=== PATIENT | male | born 1965 | race Caucasian/White ===

== ENCOUNTER 2019-03-03 18:37 | Observation (INO) ==
--- NOTE | 2019-03-03 19:20 | DR.CP ---
HPI Time Seen Time Seen by Provider: 03/03/19 19:06 PCP Primary Care Physician: COLTEN FUNES HPI Comment HPI Comment: PATIENT IS 53YR OLD WHITE MALE WITH HISTORY OF GOUT, SLEEP APNEA, WHO IS IN ED WITH PAIN LEFT SCAPULAR RADIATING TO NECK AND LEFT SHOULDER. WOKE UP WITH PAIN THIS AM IT PERSISTENT CAUSING WEAKNESS, FATIGUE AND SOB. DAILY ACTIVITIES HAS BEING DIFFICULT TO DO. Complaint Chief Complaint Doctor Comments: CHEST PAIN. Chief Complaint:: " I GOT UP THIS MORNING HURTING IN MY CHEST NECK AND ARM I THOUGHT I MAY HAVE SLEEP WRONG BUT ITS NOT GOING AWAY AND I DONT HAVE ANY ENERGY. I LISTENED TO MY HEART AND IT SOUND LIKE A WASHING MACHINE I HURT IN MY LEFT ARM UP IN MY NECK AND ACROSS CHEST AND IN MY SHOULDER BLADES" Self Treatment fo Chief Complaint: ASA X2 1800 Reviewed Nurses Notes Review: Yes Source History Provided: Patient Mode of Arrival Mode of Arrival: Ambulatory Timing Onset of Chief Complaint: 03/03/19 Came on: Suddenly Duration Duration: Constant Duration: Hours PMH PMH Past Medical History: No Past Medical History: Gout Past Surgical History: No Family History History of Family Medical Conditions: Yes Family Medical History: Diabetes Mellitus, Cancer and Hypertension Social History Alcohol Use: None Do you use any recreational Drugs:: No Lives Where: Home infectious screening Have you traveled outside the country in the last 6 months?: No PE Vitals Vitals: Temperature 98.1 F Pulse Rate 55 Respiratory Rate 11 Blood Pressure 148/92 O2 Sat by Pulse Oximetry 98 ROR Labs Reviewed Result Diagrams: 03/03/19 19:06 03/03/19 19:06 Laboratory: WBC 7.3 X10^3/uL (3.6-10.0) 03/03/19 19:06 RBC 4.97 X10^6/uL (4.7-6.0) 03/03/19 19:06 Hgb 15.8 g/dL (13.5-18.0) 03/03/19 19:06 Hct 43.9 % (42.0-54.0) 03/03/19 19:06 MCV 88.4 fL (80.0-100.0) 03/03/19 19:06 MCH 31.7 pg (27.0-34.0) 03/03/19 19:06 MCHC 35.9 g/dL (33.0-35.0) H 03/03/19 19:06 RDW 13.0 % (11.6-16.5) 03/03/19 19:06 Plt Count 154 X10^3/uL (150.0-450.0) 03/03/19 19:06 MPV 7.6 fL (7.4-11.0) 03/03/19 19:06 Neut % (Auto) 71.5 % (42.0-75.0) 03/03/19 19:06 Lymph % (Auto) 18.3 % (21.0-51.0) L 03/03/19 19:06 [place] % (Auto) 7.4 % (0.0-13.0) 03/03/19 19:06 Eos % (Auto) 2.4 % (0.9-2.9) 03/03/19 19:06 Baso % (Auto) 0.4 % (0.2-1.0) 03/03/19 19:06 Neut # (Auto) 5.2 x10^3/uL (2.2-4.8) H 03/03/19 19:06 Lymph # (Auto) 1.3 X10^3/uL (1.3-2.9) 03/03/19 19:06 [place] # (Auto) 0.5 x10^3/uL (0.3-0.8) 03/03/19 19:06 Eos # (Auto) 0.2 x10^3/uL (0.0-0.2) 03/03/19 19:06 Baso # (Auto) 0.0 X10^3/uL (0.0-0.1) 03/03/19 19:06 Absolute Nucleated RBC 0.2 /100WBC 03/03/19 19:06 D-Dimer < 100 ng/mL (0-400) 03/03/19 19:06 Sodium 140 mmol/L (136-145) 03/03/19 19:06 Corrected Sodium TNP 03/03/19 19:06 Potassium 3.6 mmol/L (3.5-5.1) 03/03/19 19:06 Chloride 103 mmol/L (98-107) 03/03/19 19:06 Carbon Dioxide 30.0 mmol/L (21-32) 03/03/19 19:06 BUN 8 mg/dL (7-18) 03/03/19 19:06 Creatinine 1.94 mg/dL (0.70-1.30) H 03/03/19 19:06 Est GFR (MDRD) Af Amer 47 (>60) L 03/03/19 19:06 Est GFR (MDRD) Non-Af 39 (>60) L 03/03/19 19:06 Glucose 85 mg/dL (65-99) 03/03/19 19:06 Calcium 8.7 mg/dL (8.5-10.1) 03/03/19 19:06 Corrected Calcium TNP 03/03/19 19:06 Total Bilirubin 0.70 mg/dL (0.2-1.0) 03/03/19 19:06 AST 21 Units/L (15-37) 03/03/19 19:06 ALT 22 Units/L (12-78) 03/03/19 19:06 Alkaline Phosphatase 98 Units/L (46-116) 03/03/19 19:06 Creatine Kinase 133 Units/L (39-308) 03/03/19 19:06 CK-MB (CK-2) < 1.0 ng/mL (0-4.0) 03/03/19 19:06 CK/CKMB % Calc 0.8 % (<4) 03/03/19 19:06 Troponin I < 0.02 ng/mL (0-1.5) 03/03/19 19:06 B-Natriuretic Peptide 26.3 pg/mL (0-79) 03/03/19 19:00 Total Protein 7.1 g/dL (6.4-8.2) 03/03/19 19:06 Albumin 3.7 g/dL (3.4-5.0) 03/03/19 19:06 Globulin 3.4 g/dL (2.5-4.5) 03/03/19 19:06 Albumin/Globulin Ratio 1.1 Ratio (1.1-2.1) 03/03/19 19:06
[2019-03-03 19:38] LABS: BASOPHILS % (AUTO) 0.4 % (0.2-1.0); EOSINOPHILS # (AUTO) 0.2 x10^3/uL (0.0-0.2); EOSINOPHILS % (AUTO) 2.4 % (0.9-2.9); HEMATOCRIT 43.9 % (42.0-54.0); HEMOGLOBIN 15.8 g/dL (13.5-18.0); LYMPHOCYTES # (AUTO) 1.3 X10^3/uL (1.3-2.9); LYMPHOCYTES % (AUTO) 18.3 % (21.0-51.0); MEAN CORPUSCULAR HEMOGLOBIN 31.7 pg (27.0-34.0); MEAN CORPUSCULAR HGB CONC 35.9 g/dL (33.0-35.0); MEAN CORPUSCULAR VOLUME 88.4 fL (80.0-100.0); MEAN PLATELET VOLUME 7.6 fL (7.4-11.0); MONOCYTES # (AUTO) 0.5 x10^3/uL (0.3-0.8); MONOCYTES % (AUTO) 7.4 % (0.0-13.0); NEUTROPHILS # (AUTO) 5.2 x10^3/uL (2.2-4.8); NEUTROPHILS % (AUTO) 71.5 % (42.0-75.0); PLATELET COUNT 154 X10^3/uL (150.0-450.0); RED BLOOD COUNT 4.97 X10^6/uL (4.7-6.0); WHITE BLOOD COUNT 7.3 X10^3/uL (3.6-10.0)
[2019-03-03 19:50] LABS: ALANINE AMINOTRANSFERASE 22 Units/L (12-78); ALBUMIN 3.7 g/dL (3.4-5.0); ALKALINE PHOSPHATASE 98 Units/L (46-116); ASPARTATE AMINO TRANSFERASE 21 Units/L (15-37); BLOOD UREA NITROGEN 8 mg/dL (7-18); CALCIUM 8.7 mg/dL (8.5-10.1); CHLORIDE 103 mmol/L (98-107); CREATINE KINASE 133 Units/L (39-308); CREATININE 1.94 mg/dL (0.70-1.30); SODIUM 140 mmol/L (136-145); TOTAL PROTEIN 7.1 g/dL (6.4-8.2); eGFR NON BLACK RACES 39 (>60)
[2019-03-03 20:02] LABS: CREATINE KINASE MB < 1.0 ng/mL (0-4.0); TROPONIN I < 0.02 ng/mL (0-1.5)
[2019-03-03 20:03] LABS: CKMB % 0.8 % (<4)
--- NOTE | 2019-03-03 20:03 | RAD ---
History: Pain Exam: Chest x-ray Comparison: None Technique: Portable chest Findings: The heart is top normal. The pulmonary vessels are normal. The lungs are mildly hyperinflated. No consolidation or effusion is seen. There is overlying EKG lead artifact. IMPRESSION: Overlying EKG lead artifact otherwise, unremarkable. Reported By:
[2019-03-03] MEDS ORDERED: MORPHINE SULFATE INJ 4 MG IVP ONE (21:09)
[2019-03-03] MEDS ORDERED: ZOFRAN INJ 4 MG VIAL IVP ONE (21:09)
[2019-03-03] MEDS ORDERED: NS 1000 ML 1,000 ML IV ONE (21:15)
[2019-03-03] MEDS ORDERED: NS 1000 ML 1,000 ML ONE (21:21)
[2019-03-03] MEDS ORDERED: ZOFRAN INJ 4 MG VIAL ONE (21:22)
[2019-03-03] MEDS ORDERED: MORPHINE SULFATE INJ 4 MG ONE (21:22)
[2019-03-03] MEDS ORDERED: DILAUDID INJ IVP PRN (23:45)
[2019-03-03] MEDS ORDERED: ZOFRAN INJ 4 MG VIAL IVP PRN (23:45)
[2019-03-04] MEDS: NS 1000 ML 1,000 ML IV SCH ×3 (00:40→20:49)
[2019-03-04 01:14] VITALS: BMI 21.4
[2019-03-04 01:48] LABS: BILIRUBIN,URINE NEGATIVE (NEGATIVE); BLOOD/HEMOGLOBIN,URINE 1+ (NEGATIVE); GLUCOSE, URINE NEGATIVE (NEGATIVE); KETONES,URINE NEGATIVE (NEGATIVE); LEUKOCYTE ESTERASE ,URINE NEGATIVE (NEGATIVE); NITRITES,URINE NEGATIVE (NEGATIVE); PROTEIN,URINE NEGATIVE (NEGATIVE); UROBILINOGEN,URINE NORMAL (NORMAL)
[2019-03-04 01:58] LABS: APPEARANCE,URINE CLEAR (CLEAR); COLOR,URINE YELLOW (YELLOW); SQUAMOUS EPITHELIAL CELL,UR NEGATIVE /HPF (NEGATIVE)
[2019-03-04 01:59] LABS: BACTERIA,URINE NEGATIVE /HPF (NEGATIVE)
[2019-03-04 02:43] LABS: CKMB % 0.8 % (<4); CREATINE KINASE MB 0.7 ng/mL (0-4.0); TROPONIN I 0.02 ng/mL (0-1.5)
[2019-03-04] MEDS: ATIVAN INJ 2 MG VIAL IVP SCH ×4 (04:54→20:48)
[2019-03-04 05:55] LABS: BASOPHILS % (AUTO) 0.4 % (0.2-1.0); EOSINOPHILS # (AUTO) 0.1 x10^3/uL (0.0-0.2); EOSINOPHILS % (AUTO) 3.1 % (0.9-2.9); HEMATOCRIT 41.2 % (42.0-54.0); HEMOGLOBIN 14.7 g/dL (13.5-18.0); LYMPHOCYTES % (AUTO) 21.6 % (21.0-51.0); MEAN CORPUSCULAR HEMOGLOBIN 31.7 pg (27.0-34.0); MEAN CORPUSCULAR HGB CONC 35.6 g/dL (33.0-35.0); MEAN PLATELET VOLUME 7.5 fL (7.4-11.0); MONOCYTES # (AUTO) 0.4 x10^3/uL (0.3-0.8); MONOCYTES % (AUTO) 9.2 % (0.0-13.0); NEUTROPHILS # (AUTO) 3.1 x10^3/uL (2.2-4.8); NEUTROPHILS % (AUTO) 65.7 % (42.0-75.0); PLATELET COUNT 119 X10^3/uL (150.0-450.0); RED BLOOD COUNT 4.63 X10^6/uL (4.7-6.0); WHITE BLOOD COUNT 4.6 X10^3/uL (3.6-10.0)
[2019-03-04 06:11] LABS: ALANINE AMINOTRANSFERASE 18 Units/L (12-78); ALBUMIN 3.1 g/dL (3.4-5.0); ALKALINE PHOSPHATASE 78 Units/L (46-116); ASPARTATE AMINO TRANSFERASE 16 Units/L (15-37); BLOOD UREA NITROGEN 10 mg/dL (7-18); CALCIUM 8.2 mg/dL (8.5-10.1); CARBON DIOXIDE 30.7 mmol/L (21-32); CHLORIDE 107 mmol/L (98-107); CHOLESTEROL 135 mg/dL (0-200); COR CA(FOR HYPOALB) 8.9 mg/dL (8.5-10.1); CREATININE 1.56 mg/dL (0.70-1.30); HDL CHOLESTEROL 34 mg/dL (40-60); MAGNESIUM 2.1 mg/dL (1.7-2.9); SODIUM 142 mmol/L (136-145); TOTAL PROTEIN 6.2 g/dL (6.4-8.2); TRIGLYCERIDES 70 mg/dL (0-150); eGFR NON BLACK RACES 50 (>60)
[2019-03-04] MEDS: TYLENOL 325 MG TAB PO PRN ×3 (08:30→19:41)
[2019-03-04] MEDS ORDERED: TYLENOL 325 MG TAB PO ONE (08:44)
[2019-03-04 09:12] LABS: CKMB % 1.2 % (<4); CREATINE KINASE 85 Units/L (39-308); CREATINE KINASE MB < 1.0 ng/mL (0-4.0); TROPONIN I < 0.02 ng/mL (0-1.5)
--- NOTE | 2019-03-04 12:37 | CT ---
HISTORY: Dizziness, fatigue, and weakness. Study: CT brain without contrast Comparison: None. Technique: Multiple axial images of the brain were obtained from the skull base to the vertex without administration of IV contrast. Dose reduction techniques including Automated Exposure Control (AEC) and adjustment of mA and kV were utilized. Findings: No acute intraparenchymal hemorrhage or mass can be identified. No extra-axial fluid collections are seen. No alteration in the attenuation of the brain parenchyma can be identified to suggest acute or subacute ischemic change. The ventricular system is symmetric and nondilated. The extracranial structures are grossly unremarkable. IMPRESSION: No acute intracranial pathology. Reported By:
--- NOTE | 2019-03-04 13:14 | CONS ---
Cardiology Consult Consultation for Day of: Date: 03/04/19 Chief Complaint Chief Complaint: chest pain Allergies Allergies Allergy/AdvReac Type Severity Reaction Status Date / Time No Known Drug Allergies Allergy Verified 03/03/19 18:48 History of Present Illness History of Present Illness: Patient presents with cp that has been on and off for several months. Yesterday the patient start having cp that radiated to his neck and shoulders. It got worse and he came to he ED. He says he has gradually been getting more fatigue and short of breath which is worse when exerts himself. He has also been having more chest discomfort which he thought was from indigestion but he doesn't feel like Tums have been helping. He has been experiencing dizziness on and off also. Past Medical History Past Medical History: Gout Past Surgical History Surgical History: Ortho Surgery Family History Family Medical History: Diabetes Mellitus, Cancer, [place] and Hypertension Social History Does patient currently use any type of tobacco product: No Have you used tobacco products in the last 12 months: No Type of Tobacco Use: None Does any household member use tobacco: No Alcohol Use: None Drug Use: None Medications Home Medications: No Known Drug Allergies Allergy (Verified 03/03/19 18:48) CONTINUE taking the following medications colchicine 1 tab PO PRN PRN 03/04/19 [History] Review of Systems Cardiovascular: Chest Pain and Light Headedness Physical Exam Vital Signs: Temperature 98.1 F Pulse Rate [Brachial] 56 Pulse Rate 58 Respiratory Rate 17 Blood Pressure [Left Arm] 142/82 Blood Pressure 133/80 O2 Sat by Pulse Oximetry 99 Medical Decision Making EKG Results: Sinus Rhythm (Hr 66) Labs reviewed: Yes Radiology Reviewed: Yes Plan Plan: 1. CHEST PAIN- CARDIAC ENZYMES NEG. NUC VS LHC PENDING ON EFCHO RESULTS 2. SHORTNESS OF BREATH- FOLLOW UP WITH ECHO 3. MURMUR 4. FATIGUE 5. AKD 6. DIZZINESS- F/U WITH CT OF HEAD AND CAROTID U/S
[2019-03-04] MEDS ORDERED: LIPITOR TAB 20 MG ONE (14:48)
[2019-03-04] MEDS: ASPIRIN EC 81 MG PO SCH (14:50)
[2019-03-04] MEDS: LIPITOR TAB 20 MG PO SCH ×2 (14:50→20:49)
[2019-03-04] MEDS: LOPRESSOR TAB 25 MG PO SCH ×2 (14:50→20:48)
--- NOTE | 2019-03-04 15:10 | VAS ---
HISTORY: Dizziness, fatigue, weakness Study: Carotid ultrasound Comparison: None Technique: Multiple enrique scale and color flow Doppler images of the right and left carotid arterial system were obtained. The vertebral arterial system was evaluated as well. Findings: The peak systolic velocity of the right ICA is 72 cm/sec. The peak systolic velocity of the left ICA is 85 cm/sec. The ICA/CCA ratio on the right is 1.0. The ICA/CCA ratio on the left is 1.2. Bilateral antegrade vertebral flow was noted. IMPRESSION: 1. No hemodynamically significant stenosis is appreciated. Reported By:
--- NOTE | 2019-03-04 15:45 | DR.H&P ---
H&P - History & Physical for Day of: H&P Date: 03/03/19 - Chief Complaint Chief Complaint: CHEST PAIN, SOB, WEAKNESS, FATIGUE, DIZZINESS - History of Present Illness History of Present Illness: IS A 53 YEAR OLD PATIENT OF [facility] WHO PRESENTED TO THE ER WITH COMPLAINTS OF CHEST PAIN THAT RADIATES TO THE LEFT SHOULDER AND NECK. HE REPORTS TAKING TUMS AT HOME BECAUSE HE THOUGHT THE PAIN WAS RELATED TO INDIGESTION, HOWEVER, THE TUMS DID NOT RELIEVE HIS PAIN. HE ALSO REPORTED WEAKNESS, FATIGUE, SHORTNESS OF BREATH, NAUSEA, AND DIZZINESS THE PAST SEVERAL DAYS. PATIENT REPORTS, MY LISTENED TO MY CHEST WITH A STETHESCOPE AND SHE SAID THAT IT SOUNDED LIKE A WASHING MACHINE. I JUST HAD A NORMAL WORKUP WHEN I WAS DISCHARGED FROM THE A FEW MONTHS AGO. HE ALSO REPORTS TAKING ASPIRIN X 2 AT 1800 YESTERDAY WITHOUT IMPROVEMENT IN SYMPTOMS. ON EXAMINATION, HE WAS NOTED WITH A SYSTOLIC EJECTION MURMUR. ON ARRIVAL, VITALS WERE 98.1-74-18-99%-142/84. LABS WERE OBTAINED. CREATININE WAS NOTED TO BE 1.94, GFR 39, OTHERWISE, LABS STABLE. CARDIAC ENZYMES WITHIN NORMAL LIMITS. URINALYSIS WAS UNREMARKABLE. AN EKGS WAS OBTAINED ON ADMISSION AND REVEALED SINUS RHYTHM WITH HR 69. A CHEST XRAY WAS OBTAINED AND WAS UNREMARKABLE. HE WAS GIVEN MORPHINE 4MG IV X 1 AND ZOFRAN 4MG IV X 1 WITH ONLY MILD IMPROVEMENT IN SYMPTOMS. HE WAS ADMITTED FOR FURTHER EVALUATION AND TREATMENT OF CHEST PAIN RULE OUT ACUTE LA. HE WAS STARTED ON NORMAL SALINE AT K[facility], LOPRESSOR 12.5MG PO BID, ATIVAN 1MG IV Q6H PRN ANXIETY, DILAUDID 2MG IV Q6H PRN PAIN, ASPIRIN 81MG PO DAILY, LIPITOR 20MG PO HS, AND ZOFRAN 4MG IV Q6H PRN NAUSEA. TODAY, WE WILL OBTAIN A BRAIN CT, AN ECHO, CAROTID DOPPLER STUDIES, AND WILL OBTAIN BLOOD CULTURES. WE WILL CONSULT , BELL ATTENDANT. OTHERWISE, WE WILL FOLLOW UP WITH AM LABS AND CONTINUE TO [facility]. - Past Medical History Past Medical History: Gout - Past Surgical History Surgical History: Ortho Surgery - Family History Family Medical History: Diabetes Mellitus, Cancer, [place], Hypertension - Social History Does patient currently use any type of tobacco product: No Have you used tobacco products in the last 12 months: No Type of Tobacco Use: None Does any household member use tobacco: No Alcohol Use: None Drug Use: None - Medications Home Medications: No Known Drug Allergies Allergy (Verified 03/03/19 18:48) CONTINUE taking the following medications RX: colchicine 1 tab PO PRN PRN 03/04/19 [History] - Review of Systems Constitutional: Weakness, Malaise Eyes: No Symptoms Reported ENT: No Symptoms Reported Respiratory: Shortness of Breath, SOB with Excertion Cardiovascular: Chest Pain, Light Headedness Gastrointestinal: Nausea Genitourinary: No Symptoms Reported Musculoskeletal: No Symptoms Reported Skin: No Symptoms Reported Neurological: Weakness - Physical Exam Vital Signs: Temperature 98.1 F Pulse Rate [Brachial] 56 Pulse Rate 58 Respiratory Rate 17 Blood Pressure [Left Arm] 142/82 Blood Pressure 133/80 O2 Sat by Pulse Oximetry 99 Oriented: Normal Eyes: Normal Ear: Normal Nose: Normal Throat: Normal Respiratory: Diminished Throughout Cardiovascular: Irregular, Systolic, Murmur : Normal Auscultation: Bowel Sounds: Normal Palpation: Normal Tenderness: Normal Skin: Normal Musculoskeletal: Normal Psychiatric: Normal Mood Description: Calm Affect: Normal Speech Pattern: Clear - Assessment/Plan (1) Chest pain, rule out acute myocardial infarction Status: Acute Plan: SERIAL CARDIAC ENZYMES AND EKG, LABORATORY CHEMIST, SUPPLEMENTAL OXYGEN, OBTAIN ECHO, CAROTID DOPPLER, CARDIOLOGY CONSULT, CONTINUE TO MONITOR (2) Systolic ejection murmur Status: Acute Plan: SERIAL CARDIAC ENZYMES AND EKG, LABORATORY CHEMIST, SUPPLEMENTAL OXYGEN, OBTAIN ECHO, CAROTID DOPPLER, CARDIOLOGY CONSULT, CONTINUE TO MONITOR - Allergies Allergies/Adverse Reactions: Allergies Allergy/AdvReac Type Severity Reaction Status Date / Time No Known Drug Allergies Allergy Verified 03/03/19 18:48
[2019-03-05] MEDS: ATIVAN INJ 2 MG VIAL IVP SCH ×2 (02:25→08:52)
[2019-03-05] MEDS: NS 1000 ML 1,000 ML IV SCH (02:25)
[2019-03-05 05:25] LABS: BASOPHILS % (AUTO) 0.4 % (0.2-1.0); EOSINOPHILS # (AUTO) 0.2 x10^3/uL (0.0-0.2); EOSINOPHILS % (AUTO) 3.2 % (0.9-2.9); HEMATOCRIT 42.3 % (42.0-54.0); LYMPHOCYTES # (AUTO) 0.9 X10^3/uL (1.3-2.9); LYMPHOCYTES % (AUTO) 16.5 % (21.0-51.0); MEAN CORPUSCULAR HEMOGLOBIN 31.7 pg (27.0-34.0); MEAN CORPUSCULAR HGB CONC 35.5 g/dL (33.0-35.0); MEAN CORPUSCULAR VOLUME 89.3 fL (80.0-100.0); MEAN PLATELET VOLUME 7.7 fL (7.4-11.0); MONOCYTES # (AUTO) 0.4 x10^3/uL (0.3-0.8); MONOCYTES % (AUTO) 7.3 % (0.0-13.0); NEUTROPHILS # (AUTO) 4.1 x10^3/uL (2.2-4.8); NEUTROPHILS % (AUTO) 72.6 % (42.0-75.0); PLATELET COUNT 124 X10^3/uL (150.0-450.0); RED BLOOD COUNT 4.74 X10^6/uL (4.7-6.0); RED CELL DISTRIBUTION WIDTH 12.8 % (11.6-16.5); WHITE BLOOD COUNT 5.7 X10^3/uL (3.6-10.0)
[2019-03-05 05:34] LABS: ALANINE AMINOTRANSFERASE 18 Units/L (12-78); ALKALINE PHOSPHATASE 74 Units/L (46-116); ASPARTATE AMINO TRANSFERASE 17 Units/L (15-37); BLOOD UREA NITROGEN 10 mg/dL (7-18); CALCIUM 8.2 mg/dL (8.5-10.1); CARBON DIOXIDE 30.1 mmol/L (21-32); CHLORIDE 107 mmol/L (98-107); CREATININE 1.45 mg/dL (0.70-1.30); SODIUM 141 mmol/L (136-145); TOTAL PROTEIN 6.1 g/dL (6.4-8.2); eGFR NON BLACK RACES 54 (>60)
[2019-03-05] MEDS: ASPIRIN EC 81 MG PO SCH (08:52)
[2019-03-05] MEDS: LOPRESSOR TAB 25 MG PO SCH (08:53)
[2019-03-05] MEDS ORDERED: VIBRAMYCIN PO SCH (13:00)
[2019-03-05 14:10] VITALS: BP 108/71
== END 2019-03-05 14:15 | disposition short-term general hospital (02) ==
LOC: ER 18:40 → ICU 18:40
PROVIDERS: ADMIT Internal Medicine; ATTEND Internal Medicine
DX: R07.89 Other chest pain; R53.83 Other fatigue; R94.4 Abnormal results of kidney function studies; R53.1 Weakness; R06.02 Shortness of breath; R42 Dizziness and giddiness; M10.9 Gout, unspecified; R01.1 Cardiac murmur, unspecified
CPT/HCPCS: 36415; 70450; 71010; 71045; 80053; 80061; 81001; 82550; 82553; 83735; 83880; 84484; 85025; 85378; 85610; 87040; 93005; 93306; 93880; 96365; 96367; 96374; 96375; 99284; A4222; G0378; J2270; J2405; J3490; J7030

== ENCOUNTER 2019-03-15 08:31 | Observation (INO) ==
[2019-03-15 08:43] VITALS: BMI 21.4
[2019-03-15 09:02] LABS: BASOPHILS % (AUTO) 0.5 % (0.2-1.0); EOSINOPHILS # (AUTO) 0.3 x10^3/uL (0.0-0.2); EOSINOPHILS % (AUTO) 4.2 % (0.9-2.9); HEMATOCRIT 41.1 % (42.0-54.0); HEMOGLOBIN 14.6 g/dL (13.5-18.0); LYMPHOCYTES # (AUTO) 0.9 X10^3/uL (1.3-2.9); LYMPHOCYTES % (AUTO) 14.7 % (21.0-51.0); MEAN CORPUSCULAR HEMOGLOBIN 31.2 pg (27.0-34.0); MEAN CORPUSCULAR HGB CONC 35.6 g/dL (33.0-35.0); MEAN CORPUSCULAR VOLUME 87.8 fL (80.0-100.0); MEAN PLATELET VOLUME 6.6 fL (7.4-11.0); MONOCYTES # (AUTO) 0.6 x10^3/uL (0.3-0.8); MONOCYTES % (AUTO) 9.2 % (0.0-13.0); NEUTROPHILS # (AUTO) 4.5 x10^3/uL (2.2-4.8); NEUTROPHILS % (AUTO) 71.4 % (42.0-75.0); PLATELET COUNT 246 X10^3/uL (150.0-450.0); RED BLOOD COUNT 4.68 X10^6/uL (4.7-6.0); RED CELL DISTRIBUTION WIDTH 12.8 % (11.6-16.5); WHITE BLOOD COUNT 6.4 X10^3/uL (3.6-10.0)
--- NOTE | 2019-03-15 09:03 | ED.ABCESS ---
HPI Time Seen Time Seen by Provider: 03/15/19 08:41 PCP Primary Care Physician: maxi HPI comment HPI Comment: Patient presents with complaint of mid sternal chest tightness. He had mitral valve surgery one week ago and has been doing fine. He has had a few episodes of low blood pressure and has felt dizzy. Complaint Doctors Chief Complaint Comments: Chest tightness Chief Complaint:: pt stated he had mitral valve repair 1 week ago to in [facility]. he woke up this morning at 6 and was dizzy and had tightness in his chest. Source History Provided: Patient Mode of Arrival Mode of Arrival: Wheelchair Timing Onset of Chief Complaint: 03/15/19 PMH PMH Past Medical History: Yes Past Medical History: Gout Past Surgical History: Yes Surgical History: Ortho Surgery Past Surgical History Comment: mitral valve repair Family History History of Family Medical Conditions: Yes Family Medical History: Diabetes Mellitus, Cancer, [place] and Hypertension Social History Does patient currently use any type of tobacco product: No Have you used tobacco products in the last 12 months: No Type of Tobacco Use: None Does any household member use tobacco: No Alcohol Use: None Do you use any recreational Drugs:: No Lives With: Family Lives Where: Home infectious screening In the last 2 months have you had wt loss of >10#?: NO Have you had fever, night sweats or hemotysis?: No Have you traveled outside the country in the last 6 months?: No Isolation: Standard ROS Review of Systems Constitutional: No Symptoms Reported Eyes: No Symptoms Reported ENTM: No Symptoms Reported Respiratoy: No Symptoms Reported Cardiovascular: See HPI Gastrointestinal/Abdominal: No Symptoms Reported Neurological: Dizziness Musculoskeletal: No Symptoms Reported Integumentary: No Symptoms Reported Hematologic/Lymphatic: No Symptoms Reported Endocrine: No Symptoms Reported Psychiatric: No Symptoms Reported All Other Systems: Reviewed and Negative PE Vital Signs Vital Signs: Temp Pulse Resp BP BP Pulse Ox 03/15/19 08:36 98.2 F 91 H 16 122/87 100 03/05/19 14:00 108/71 03/04/19 00:02 142/82 General Limitations: No Limitations General Appearance: Alert, In No Apparent Distress and Anxious Head Head Exam: Normal Inspection, Atraumatic and Normocephalic Eyes Eye exam: Normal Appearance, PERRL and EOMI ENT ENT Exam: Normal Exam, Normal Oropharynx and Normal External Ear Exam Neck Neck Exam: Normal Inspection and Full ROM Chest Chest Inspection: Normal Inspection and Symmetric Chest Wall Rise Respiratory Respiratory Exam: Normal Lung Sounds Bilat Respiratory Exam: Bilateral: Clear to Auscultation Cardiovascular Cardiovascular Exam: Regular Rate and Normal Rhythm Abdominal Exam Abdominal Exam: Normal Inspection, Normal Bowel Sounds and Soft Abdominal Tenderness: RUQ, RLQ and LUQ Extremities Extremities Exam: Normal Inspection and Full ROM Back Back Exam: Normal Inspection Neurologic Neurological Exam: Alert, Oriented X3 and CN II-XII Intact Skin Skin Exam: Warm, Dry and Intact ROR Labs Reviewed Laboratory Results Reviewed?: Yes Result Diagrams: 03/15/19 08:45 03/15/19 08:45 Laboratory: WBC 6.4 X10^3/uL (3.6-10.0) 03/15/19 08:45 RBC 4.68 X10^6/uL (4.7-6.0) L 03/15/19 08:45 Hgb 14.6 g/dL (13.5-18.0) 03/15/19 08:45 Hct 41.1 % (42.0-54.0) L 03/15/19 08:45 MCV 87.8 fL (80.0-100.0) 03/15/19 08:45 MCH 31.2 pg (27.0-34.0) 03/15/19 08:45 MCHC 35.6 g/dL (33.0-35.0) H 03/15/19 08:45 RDW 12.8 % (11.6-16.5) 03/15/19 08:45 Plt Count 246 X10^3/uL (150.0-450.0) 03/15/19 08:45 MPV 6.6 fL (7.4-11.0) L 03/15/19 08:45 Neut % (Auto) 71.4 % (42.0-75.0) 03/15/19 08:45 Lymph % (Auto) 14.7 % (21.0-51.0) L 03/15/19 08:45 [place] % (Auto) 9.2 % (0.0-13.0) 03/15/19 08:45 Eos % (Auto) 4.2 % (0.9-2.9) H 03/15/19 08:45 Baso % (Auto) 0.5 % (0.2-1.0) 03/15/19 08:45 Neut # (Auto) 4.5 x10^3/uL (2.2-4.8) 03/15/19 08:45 Lymph # (Auto) 0.9 X10^3/uL (1.3-2.9) L 03/15/19 08:45 [place] # (Auto) 0.6 x10^3/uL (0.3-0.8) 03/15/19 08:45 Eos # (Auto) 0.3 x10^3/uL (0.0-0.2) H 03/15/19 08:45 Baso # (Auto) 0.0 X10^3/uL (0.0-0.1) 03/15/19 08:45 Absolute Nucleated RBC 0.0 /100WBC 03/15/19 08:45 INR Target Range - 03/15/19 08:45 INR 1.04 (0.8-1.3) 03/15/19 08:45 APTT 36.6 SECONDS (22.9-36.5) H 03/15/19 08:45 PTT Comment - 03/15/19 08:45 Other Results Comments: Chest: Lungs free of acute infiltrates. Subsegmental atelectasis right lung base XRAY XRAY Interpreted by: Radiologist
[2019-03-15 09:19] LABS: BLOOD UREA NITROGEN 15 mg/dL (7-18); CARBON DIOXIDE 30.5 mmol/L (21-32); CHLORIDE 103 mmol/L (98-107); COR NA(FOR HYPERGLY) 140 mmol/L (136-145); CREATININE 1.57 mg/dL (0.70-1.30); SODIUM 139 mmol/L (136-145); eGFR NON BLACK RACES 49 (>60)
--- NOTE | 2019-03-15 09:19 | RAD ---
HISTORY: Chest tightness Study: Chest AP portable Comparison: 03/03/2019 Findings: The heart is upper limits normal in size. No congestive heart failure is noted. The lungs are free of acute alveolar infiltrates. There is minimal subsegmental atelectasis in the right lung base. No pleural effusions are identified. The bony thorax is unremarkable. A metallic ring like density overlies the heart. This was not present on the prior examination and may be extrinsic. Clinical correlation is recommended. IMPRESSION: Lungs free of acute infiltrates Subsegmental atelectasis right lung base Reported By:
[2019-03-15 09:20] LABS: CALCIUM 9.1 mg/dL (8.5-10.1)
[2019-03-15 09:35] LABS: ALANINE AMINOTRANSFERASE 89 Units/L (12-78); ALBUMIN 2.9 g/dL (3.4-5.0); ALKALINE PHOSPHATASE 165 Units/L (46-116); ASPARTATE AMINO TRANSFERASE 33 Units/L (15-37); CKMB % 0.7 % (<4); CREATINE KINASE 143 Units/L (39-308); CREATINE KINASE MB < 1.0 ng/mL (0-4.0); MAGNESIUM 2.2 mg/dL (1.7-2.9); TOTAL PROTEIN 6.7 g/dL (6.4-8.2)
[2019-03-15] MEDS ORDERED: NS 100 ML IV 100 ML ONE (09:50)
[2019-03-15] MEDS ORDERED: NS 1000 ML 1,000 ML IV ONE (09:57)
[2019-03-15] MEDS ORDERED: NS 1000 ML 1,000 ML ONE (09:59)
--- NOTE | 2019-03-15 12:09 | CT ---
History: Shortness of breath and elevated D-dimer Study: CTA chest utilizing unknown amount of IV contrast. Sagittal and coronal and axial MIPS of the pulmonary arteries were displayed. Findings: There is a small right and a minimal left pleural effusion. There is subsegmental atelectasis or consolidation posteriorly at the right lung base. There is minimal subsegmental atelectasis at the left lung base. There is a prosthetic mitral valve. There is no pericardial effusion. No pulmonary embolus is demonstrated. The visualized upper abdomen shows small calculi in the upper pole of the right kidney. There is no hydronephrosis. The spleen is prominent. Impression: 1. No evidence for pulmonary embolus 2. Small right and minimal left pleural effusions and subsegmental atelectasis at both lung bases, right more prominent than left Reported By:
[2019-03-15] MEDS ORDERED: COLCRYS TAB 0.6 MG PO PRN (13:17)
--- NOTE | 2019-03-15 14:18 | DR.CP ---
HPI Time Seen Time Seen by Provider: 03/15/19 08:41 PCP Primary Care Physician: maxi HPI Comment HPI Comment: Patient reports tightness in chest this AM upon awakening. He reports mitral valve procedure at [facility] one week ago; today started having chest "tightness" upper chest Complaint Chief Complaint Doctor Comments: Chest tightness Chief Complaint:: pt stated he had mitral valve repair 1 week ago to in [facility]. he woke up this morning at 6 and was dizzy and had tightness in his chest. Source History Provided: Patient Mode of Arrival Mode of Arrival: Wheelchair Timing Onset of Chief Complaint: 03/15/19 PMH PMH Past Medical History: Yes Past Medical History: Gout Past Surgical History: Yes Surgical History: Ortho Surgery Past Surgical History Comment: mitral valve repair Family History History of Family Medical Conditions: Yes Family Medical History: Diabetes Mellitus, Cancer, [place] and Hypertension Social History Does patient currently use any type of tobacco product: No Have you used tobacco products in the last 12 months: No Type of Tobacco Use: None Does any household member use tobacco: No Alcohol Use: None Do you use any recreational Drugs:: No Lives With: Family Lives Where: Home infectious screening In the last 2 months have you had wt loss of >10#?: NO Have you had fever, night sweats or hemotysis?: No Have you traveled outside the country in the last 6 months?: No Isolation: Standard ROS Review of Systems Constitutional: No Symptoms Reported Eyes: No Symptoms Reported ENTM: No Symptoms Reported Respiratoy: No Symptoms Reported Cardiovascular: No Symptoms Reported Genitourinary: No Symptoms Reported Musculoskeletal: No Symptoms Reported Integumentary: No Symptoms Reported Endocrine: No Symptoms Reported All Other Systems: Reviewed and Negative PE Vitals Vitals: Temperature 98.2 F Pulse Rate [Right Radial] 92 Pulse Rate 91 Respiratory Rate 18 Blood Pressure [Left Arm] 110/74 Blood Pressure 122/87 O2 Sat by Pulse Oximetry 100 General Limitations: No Limitations General Appearance: Alert and In No Apparent Distress Head Head Exam: Normal Inspection, Atraumatic and Normocephalic Eyes Eye exam: Normal Appearance, PERRL and EOMI ENT ENT Exam: Normal Exam, Normal Oropharynx and Normal External Ear Exam Chest Chest Inspection: Normal Inspection and Symmetric Chest Wall Rise Respiratory Respiratory Exam: Normal Lung Sounds Bilat and Accessory Muscle Use Respiratory Exam: Bilateral: Clear to Auscultation Cardiovascular Cardiovascular Exam: Regular Rate and Normal Rhythm Abdominal Exam Abdominal Exam: Normal Inspection, Normal Bowel Sounds and Soft Abdominal Tenderness: RUQ and LUQ Extremities Extremities Exam: Normal Inspection and Full ROM Back Back Exam: Normal Inspection and Full ROM Neurologic Neurological Exam: Alert, Oriented X3 and CN II-XII Intact Psychiatric Psychiatric Exam: Normal Affect and Normal Mood Skin Skin Exam: Warm, Dry and Intact ROR Labs Reviewed Result Diagrams: 03/15/19 08:45 03/15/19 08:45 Laboratory: WBC 6.4 X10^3/uL (3.6-10.0) 03/15/19 08:45 RBC 4.68 X10^6/uL (4.7-6.0) L 03/15/19 08:45 Hgb 14.6 g/dL (13.5-18.0) 03/15/19 08:45 Hct 41.1 % (42.0-54.0) L 03/15/19 08:45 MCV 87.8 fL (80.0-100.0) 03/15/19 08:45 MCH 31.2 pg (27.0-34.0) 03/15/19 08:45 MCHC 35.6 g/dL (33.0-35.0) H 03/15/19 08:45 RDW 12.8 % (11.6-16.5) 03/15/19 08:45 Plt Count 246 X10^3/uL (150.0-450.0) 03/15/19 08:45 MPV 6.6 fL (7.4-11.0) L 03/15/19 08:45 Neut % (Auto) 71.4 % (42.0-75.0) 03/15/19 08:45 Lymph % (Auto) 14.7 % (21.0-51.0) L 03/15/19 08:45 [place] % (Auto) 9.2 % (0.0-13.0) 03/15/19 08:45 Eos % (Auto) 4.2 % (0.9-2.9) H 03/15/19 08:45 Baso % (Auto) 0.5 % (0.2-1.0) 03/15/19 08:45 Neut # (Auto) 4.5 x10^3/uL (2.2-4.8) 03/15/19 08:45 Lymph # (Auto) 0.9 X10^3/uL (1.3-2.9) L 03/15/19 08:45 [place] # (Auto) 0.6 x10^3/uL (0.3-0.8) 03/15/19 08:45 Eos # (Auto) 0.3 x10^3/uL (0.0-0.2) H 03/15/19 08:45 Baso # (Auto) 0.0 X10^3/uL (0.0-0.1) 03/15/19 08:45 Absolute Nucleated RBC 0.0 /100WBC 03/15/19 08:45 INR Target Range - 03/15/19 08:45 INR 1.04 (0.8-1.3) 03/15/19 08:45 APTT 36.6 SECONDS (22.9-36.5) H 03/15/19 08:45 PTT Comment - 03/15/19 08:45 D-Dimer 2980 ng/mL (0-400) H* 03/15/19 08:45 Sodium 139 mmol/L (136-145) 03/15/19 08:45 Corrected Sodium 140 mmol/L (136-145) 03/15/19 08:45 Potassium 3.6 mmol/L (3.5-5.1) 03/15/19 08:45 Chloride 103 mmol/L (98-107) 03/15/19 08:45 Carbon Dioxide 30.5 mmol/L (21-32) 03/15/19 08:45 BUN 15 mg/dL (7-18) 03/15/19 08:45 Creatinine 1.57 mg/dL (0.70-1.30) H 03/15/19 08:45 Est GFR (MDRD) Af Amer 60 (>60) 03/15/19 08:45 Est GFR (MDRD) Non-Af 49 (>60) L 03/15/19 08:45 Glucose 125 mg/dL (65-99) H 03/15/19 08:45 Calcium 9.1 mg/dL (8.5-10.1) 03/15/19 08:45 Corrected Calcium 10.0 mg/dL (8.5-10.1) 03/15/19 08:45 Magnesium 2.2 mg/dL (1.7-2.9) 03/15/19 08:45 Total Bilirubin 0.60 mg/dL (0.2-1.0) 03/15/19 08:45 AST 33 Units/L (15-37) 03/15/19 08:45 ALT 89 Units/L (12-78) H 03/15/19 08:45 Alkaline Phosphatase 165 Units/L (46-116) H 03/15/19 08:45 Creatine Kinase 143 Units/L (39-308) 03/15/19 08:45 CK-MB (CK-2) < 1.0 ng/mL (0-4.0) 03/15/19 08:45 CK/CKMB % Calc 0.7 % (<4) 03/15/19 08:45 Troponin I 0.40 ng/mL (0-1.5) 03/15/19 08:45 Total Protein 6.7 g/dL (6.4-8.2) 03/15/19 08:45 Albumin 2.9 g/dL (3.4-5.0) L 03/15/19 08:45 Globulin 3.8 g/dL (2.5-4.5) 03/15/19 08:45 Albumin/Globulin Ratio 0.8 Ratio (1.1-2.1) L 03/15/19 08:45 Other Results Comments: CTA: There is a small right and a minimal left pleural effusion. There is subsegmental atelectasis or consolidation posteriorly at the right lung base. There is minimal subsegmental atelectasis at the left lung base. There is a prosthetic mitral valve. There is no pericardial effusion. No pulmonary embolus is demonstrated. The visualized upper abdomen shows small calculi in the upper pole of the right kidney. There is no hydronephrosis. The spleen is prominent. Impression: No evidence for Pulmonary Embolus. Small right and minimal left pleural effusions and subsegmental atelectasis at both lung bases, right more prominent than left. XRAY XRAY Interpreted by: Radiologist ADDITIONAL NOTES Additional Notes Additional Notes: Admitted for chest pain protocol
[2019-03-15 15:30] LABS: CREATINE KINASE 123 Units/L (39-308); CREATINE KINASE MB < 1.0 ng/mL (0-4.0); TROPONIN I 0.35 ng/mL (0-1.5)
[2019-03-15 15:32] LABS: CKMB % 0.8 % (<4)
[2019-03-15 17:06] LABS: BILIRUBIN,URINE NEGATIVE (NEGATIVE); BLOOD/HEMOGLOBIN,URINE 1+ (NEGATIVE); GLUCOSE, URINE NEGATIVE (NEGATIVE); KETONES,URINE NEGATIVE (NEGATIVE); LEUKOCYTE ESTERASE ,URINE NEGATIVE (NEGATIVE); NITRITES,URINE NEGATIVE (NEGATIVE); PROTEIN,URINE 1+ (NEGATIVE); UROBILINOGEN,URINE NORMAL (NORMAL)
[2019-03-15 17:30] LABS: COLOR,URINE YELLOW (YELLOW)
[2019-03-15 17:31] LABS: APPEARANCE,URINE CLEAR (CLEAR); BACTERIA,URINE NEGATIVE /HPF (NEGATIVE); RBC,URINE NONE SEEN /HPF (NONE SEEN); SQUAMOUS EPITHELIAL CELL,UR RARE /HPF (NEGATIVE)
[2019-03-15 17:32] LABS: AMORPHOUS SEDIMENT,UR 1+ /HPF (NEGATIVE)
[2019-03-15] MEDS ORDERED: TYLENOL 325 MG TAB PO PRN (18:08)
[2019-03-15] MEDS ORDERED: TYLENOL 325 MG TAB PO ONE (18:09)
[2019-03-15] MEDS ORDERED: CLINDAMYCIN HCL PO SCH (21:00)
[2019-03-15 21:38] LABS: CREATINE KINASE 103 Units/L (39-308); CREATINE KINASE MB < 1.0 ng/mL (0-4.0); TROPONIN I 0.34 ng/mL (0-1.5)
[2019-03-15] MEDS: LOPRESSOR TAB 25 MG PO SCH (21:49)
[2019-03-16 05:38] LABS: BASOPHILS % (AUTO) 0.3 % (0.2-1.0); EOSINOPHILS # (AUTO) 0.3 x10^3/uL (0.0-0.2); HEMATOCRIT 38.4 % (42.0-54.0); HEMOGLOBIN 13.8 g/dL (13.5-18.0); LYMPHOCYTES # (AUTO) 0.7 X10^3/uL (1.3-2.9); LYMPHOCYTES % (AUTO) 10.5 % (21.0-51.0); MEAN CORPUSCULAR HEMOGLOBIN 31.6 pg (27.0-34.0); MEAN CORPUSCULAR HGB CONC 35.9 g/dL (33.0-35.0); MEAN PLATELET VOLUME 6.7 fL (7.4-11.0); MONOCYTES # (AUTO) 0.5 x10^3/uL (0.3-0.8); MONOCYTES % (AUTO) 7.3 % (0.0-13.0); NEUTROPHILS # (AUTO) 5.6 x10^3/uL (2.2-4.8); NEUTROPHILS % (AUTO) 77.9 % (42.0-75.0); PLATELET COUNT 255 X10^3/uL (150.0-450.0); RED BLOOD COUNT 4.36 X10^6/uL (4.7-6.0); RED CELL DISTRIBUTION WIDTH 12.8 % (11.6-16.5); WHITE BLOOD COUNT 7.1 X10^3/uL (3.6-10.0)
[2019-03-16 05:50] LABS: ALANINE AMINOTRANSFERASE 70 Units/L (12-78); ALBUMIN 2.7 g/dL (3.4-5.0); ALKALINE PHOSPHATASE 140 Units/L (46-116); ASPARTATE AMINO TRANSFERASE 28 Units/L (15-37); BLOOD UREA NITROGEN 12 mg/dL (7-18); CALCIUM 8.5 mg/dL (8.5-10.1); CARBON DIOXIDE 29.8 mmol/L (21-32); CHLORIDE 103 mmol/L (98-107); CHOL/HDL RATIO 3.6 (0.0-5.0); CHOLESTEROL 94 mg/dL (0-200); COR CA(FOR HYPOALB) 9.5 mg/dL (8.5-10.1); CREATININE 1.44 mg/dL (0.70-1.30); HDL CHOLESTEROL 26 mg/dL (40-60); SODIUM 138 mmol/L (136-145); TOTAL PROTEIN 6.2 g/dL (6.4-8.2); TRIGLYCERIDES 108 mg/dL (0-150); eGFR NON BLACK RACES 54 (>60)
[2019-03-16] MEDS ORDERED: LOPRESSOR TAB 25 MG PO SCH (09:00)
[2019-03-16] MEDS: MICRO K EXTEN CAP 10 MEQ PO SCH (09:12)
[2019-03-16] MEDS: LASIX PO SCH (09:12)
[2019-03-16] MEDS: ASPIRIN EC 81 MG PO SCH (09:12)
[2019-03-16] MEDS: LOPRESSOR TAB 25 MG PO SCH ×2 (09:12→20:18)
[2019-03-16] MEDS ORDERED: CEPACOL SORE THROAT LOZ MT PRN (19:01)
[2019-03-16] MEDS ORDERED: TUSSIONEX PENNKINETIC SUSP PO PRN (19:01)
[2019-03-17 05:21] LABS: BASOPHILS % (AUTO) 0.5 % (0.2-1.0); EOSINOPHILS # (AUTO) 0.3 x10^3/uL (0.0-0.2); HEMATOCRIT 38.1 % (42.0-54.0); HEMOGLOBIN 13.7 g/dL (13.5-18.0); LYMPHOCYTES # (AUTO) 0.9 X10^3/uL (1.3-2.9); MEAN CORPUSCULAR HEMOGLOBIN 31.4 pg (27.0-34.0); MEAN CORPUSCULAR HGB CONC 35.9 g/dL (33.0-35.0); MEAN CORPUSCULAR VOLUME 87.6 fL (80.0-100.0); MEAN PLATELET VOLUME 6.4 fL (7.4-11.0); MONOCYTES # (AUTO) 0.6 x10^3/uL (0.3-0.8); MONOCYTES % (AUTO) 8.9 % (0.0-13.0); NEUTROPHILS # (AUTO) 5.1 x10^3/uL (2.2-4.8); NEUTROPHILS % (AUTO) 73.6 % (42.0-75.0); PLATELET COUNT 261 X10^3/uL (150.0-450.0); RED BLOOD COUNT 4.35 X10^6/uL (4.7-6.0); RED CELL DISTRIBUTION WIDTH 12.8 % (11.6-16.5); WHITE BLOOD COUNT 6.9 X10^3/uL (3.6-10.0)
[2019-03-17 05:31] LABS: ALANINE AMINOTRANSFERASE 77 Units/L (12-78); ALBUMIN 2.8 g/dL (3.4-5.0); ALKALINE PHOSPHATASE 151 Units/L (46-116); ASPARTATE AMINO TRANSFERASE 38 Units/L (15-37); BLOOD UREA NITROGEN 10 mg/dL (7-18); CALCIUM 8.4 mg/dL (8.5-10.1); CARBON DIOXIDE 29.6 mmol/L (21-32); CHLORIDE 102 mmol/L (98-107); COR CA(FOR HYPOALB) 9.4 mg/dL (8.5-10.1); CREATININE 1.47 mg/dL (0.70-1.30); SODIUM 139 mmol/L (136-145); TOTAL PROTEIN 6.3 g/dL (6.4-8.2); eGFR NON BLACK RACES 53 (>60)
--- NOTE | 2019-03-17 06:30 | RAD ---
HISTORY: Dyspnea. Study: Single-view chest. Comparison: Chest radiograph and chest CT dated 03/15/2019. Findings: The trachea is midline. The cardiac silhouette is normal in size. 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 There has been improvement without complete resolution of subsegmental atelectasis within the right lung base. Previously noted small bilateral pleural effusions are not evident on the current exam. There is no pneumothorax. The bony thorax is grossly unremarkable. IMPRESSION: Improvement without complete resolution of right basilar subsegmental atelectasis. Previously noted small bilateral pleural effusions on the comparison CT are not evident on the current exam. Reported By:
[2019-03-17] MEDS: LOPRESSOR TAB 25 MG PO SCH (08:30)
[2019-03-17] MEDS: LASIX PO SCH (08:30)
[2019-03-17] MEDS: ASPIRIN EC 81 MG PO SCH (08:30)
[2019-03-17] MEDS: MICRO K EXTEN CAP 10 MEQ PO SCH (08:30)
[2019-03-17 08:35] VITALS: BP 104/71
--- NOTE | 2019-03-26 21:42 | DR.H&P ---
H&P - History & Physical for Day of: H&P Date: 03/15/19 - Chief Complaint Chief Complaint: CHEST PAIN - History of Present Illness History of Present Illness: IS A 53 YEAR OLD PATIENT OF [facility] WHO PRESENTED TO THE ER WITH COMPLAINTS OF MID STERNAL CHEST PAIN AND TIGHTNESS. HE IS STATUS POST MITRAL VALVE REPAIR ONE WEEK AGO. HE ALSO REPORTED DIZZINESS AT TIMES. ON ARRIVAL, VITALS WERE 98.2-91-16-100%-122/87. LABS WERE OBTAINED. ABNORMAL ALB VALUES INCLUDE THE FOLLOWING: RBC 4.68, HCT 41.1, PTT 36.6, D-DIMER 2980, CREATININE 1.57, GLUCOSE 125, ALT 89, ALK PHOS 165. CARDIAC ENZYMES WITHIN NORMAL LIMITS. URINALYSIS WAS UNREMARKABLE. AN EKGS WAS OBTAINED ON ADMISSION AND REVEALED SINUS RHYTHM WITH HR 90. A CHEST XRAY WAS OBTAINED AND REVEALED: Lungs free of acute infiltrates. Subsegmental atelectasis right lung base. A CHEST CTA WAS OBTAINED AND REVEALED: No evidence for pulmonary embolus. Small right and minimal left pleural effusions and subsegmental atelectasis at both lung bases, right more prominent than left. HE WAS GIVEN A NORMAL SALINE BOLUS AND ADMITTED FOR FURTHE EVALUATION AND TREATMENT OF CHEST PAIN, RULE OUT ACUTE MS. WE WILL OBTAIN SERIAL CARDIAC ENZYMES AND EKGS. OTHERWISE, WE PLAN TO FOLLOW UP WITH AM LABS AND CONTINUE TO MONITOR. - Past Medical History Past Medical History: Gout - Past Surgical History Surgical History: Ortho Surgery - Family History Family Medical History: Diabetes Mellitus, Cancer, MS, Sudden Cardiac , Hypertension - Social History Does patient currently use any type of tobacco product: No Have you used tobacco products in the last 12 months: No Type of Tobacco Use: None Does any household member use tobacco: No Alcohol Use: None Drug Use: None - Medications Home Medications: No Known Drug Allergies Allergy (Verified 03/03/19 18:48) CONTINUE taking the following medications aspirin 81 mg PO DAILY 03/15/19 [History] clindamycin HCl 100 mg PO BID 03/15/19 [History] furosemide 20 mg PO DAILY 03/15/19 [History] metoprolol tartrate 12.5 mg PO BID 03/15/19 [History] potassium chloride 10 meq PO DAILY 03/15/19 [History] - Review of Systems Constitutional: No Symptoms Reported Eyes: No Symptoms Reported ENT: No Symptoms Reported Respiratory: No Symptoms Reported Cardiovascular: Chest Pain, Light Headedness Gastrointestinal: No Symptoms Reported Genitourinary: No Symptoms Reported Musculoskeletal: No Symptoms Reported Skin: No Symptoms Reported Neurological: No Symptoms Reported - Physical Exam Vital Signs: Temperature 98.7 F Pulse Rate [Right Radial] 88 Pulse Rate 91 Respiratory Rate 18 Blood Pressure [Right Arm] 104/71 Blood Pressure [Left Arm] 110/74 Blood Pressure 122/87 O2 Sat by Pulse Oximetry 96 Oriented: Normal Eyes: Normal Ear: Normal Nose: Normal Throat: Normal Respiratory: Diminished Throughout Cardiovascular: Normal. negative: S3, S4, Murmur : Normal Auscultation: Bowel Sounds: Normal Palpation: Normal Tenderness: Normal Skin: Normal Musculoskeletal: Normal Psychiatric: Normal Mood Description: Calm Affect: Normal Speech Pattern: Clear - Assessment/Plan (1) Chest pain, rule out acute myocardial infarction Status: Acute Plan: ADMIT, SERIAL CARDIAC ENZYMES AND EKG, TELEMETRY, CONTINUE HOME MEDS - Allergies Allergies/Adverse Reactions: Allergies Allergy/AdvReac Type Severity Reaction Status Date / Time No Known Drug Allergies Allergy Verified 03/03/19 18:48
== END 2019-03-17 09:05 | disposition home or self-care (01) ==
LOC: ER 08:31 → MED/SURG 08:31
PROVIDERS: ADMIT Internal Medicine; ATTEND Internal Medicine
DX: R94.4 Abnormal results of kidney function studies; J90 Pleural effusion, not elsewhere classified; R07.89 Other chest pain; R79.1 Abnormal coagulation profile; R42 Dizziness and giddiness
CPT/HCPCS: 36415; 71010; 71045; 71275; 80053; 80061; 81001; 82550; 82553; 83735; 84484; 85025; 85378; 85610; 85730; 93005; 94760; 96365; 96367; 99284; A4216; A4222; G0378; J3490; J7030; J7050